=== PATIENT | female | born 1950 | race Caucasian/White ===

== ENCOUNTER 2018-03-21 12:25 | Emergency (ER) | payer OTHER ==
[~2018-03-21] VITALS: Ht 165.1 cm; Wt 70.3 kg
[2018-03-21] MEDS ORDERED: HYZAAR 100-12.1 EACH PO (12:34)
[2018-03-21] MEDS ORDERED: NEURONTIN300 MG PO (12:36)
[2018-03-21] MEDS ORDERED: NIFE60TA3 PO (12:36)
[2018-03-21] MEDS ORDERED: TOPROL XL25 M1 PO (12:36)
[2018-03-21] MEDS ORDERED: GLUCOTROL10 MG PO (12:37)
[2018-03-21] MEDS ORDERED: FORTAMET1000 MG PO (12:37)
== END 2018-03-21 18:15 | disposition home or self-care (01) ==
LOC: ER 12:25
DX: S22.32XA Fracture of one rib, left side, initial encounter for closed fracture (principal); S42.92XA Fracture of left shoulder girdle, part unspecified, initial encounter for closed fracture; S80.212A Abrasion, left knee, initial encounter; W01.198A Fall on same level from slipping, tripping and stumbling with subsequent striking against other object, initial encounter; Y93.89 Activity, other specified; Y92.512 Supermarket, store or market as the place of occurrence of the external cause; Y99.8 Other external cause status

== ENCOUNTER → 2025-05-08 07:36 | Outpatient (CLI) | payer OTHER ==
[~2025-05-08 07:36] MED LIST: FORTAMET1000 MG PO; GLUCOTROL10 MG PO; HYZAAR 100-12.1 EACH PO; NEURONTIN300 MG PO; NIFE60TA3 PO; TOPROL XL25 M1 PO
== END | disposition home or self-care (01) ==
LOC: NUCLEAR 07:36
PROVIDERS: ATTEND Specialist
DX: L03.115 Cellulitis of right lower limb (principal)